=== PATIENT | female | born 1980 | race Caucasian/White ===

== ENCOUNTER 2018-10-12 10:38 | Emergency (ER) | payer BC ==
[2018-10-12 11:36] VITALS: BP 105/71
--- NOTE | 2018-10-12 11:43 | UC ---
Throat Pain/Nasal Shaggy HPI - HPI Summary HPI Summary: Pt presents with c/o sinus congestion, pressure and pain, bilateral eye redness , and bilateral eye yellow discharge. also, c/o chills, and fatigue X 1 week. - History of Current Complaint Chief Complaint: UCGeneralIllness Stated Complaint: SINUS AND EYE COMPLAINTS Time Seen by Provider: 10/12/18 11:37 Hx Obtained From: Patient Hx Last Menstrual Period: 09/11/18 ?: No Onset/Duration: Gradual Onset, Lasting Days, Still Present Severity: Moderate Pain Intensity: 8 Cough: None Associated Signs & Symptoms: Positive: Sinus Discomfort, Nasal Discharge Related History: Seasonal Allergies - Epiglottits Risk Factors Epiglottis Risk Factors: Negative - Allergies/Home Medications Allergies/Adverse Reactions: Allergies Allergy/AdvReac Type Severity Reaction Status Date / Time ethinyl estradiol Allergy Hives Verified 10/12/18 11:33 [From [employer] (28)] [email or web address] Allergy Hives Verified 10/12/18 11:33 [From [employer] (28)] Home Medications: Home Medications Levothyroxine TAB* [Synthroid TAB*] 50 mcg PO DAILY 10/12/18 [History Confirmed 10/12/18] Phenylephrine HCl/Acetaminophn [Sinus Pressure-Pain Caplet] 1 tab PO ONCE PRN [History Confirmed 10/12/18] PMH/Surg Hx/FS Hx/Imm Hx Previously Healthy: Yes - Surgical History Surgical History: Yes Surgery Procedure, Year, and Place: wisdom - Family History Known Family History: Positive: Cardiac Disease - Social History Occupation: Employed Full-time Lives: With Family Alcohol Use: Occasionally Substance Use Type: None Smoking Status (MU): Never Smoked Tobacco Have You Smoked in the Last Year: No - Immunization History Vaccination Up to Date: No Review of Systems All Other Systems Reviewed And Are Negative: Yes Constitutional: Positive: Chills, Fatigue Skin: Positive: Negative Eyes: Positive: Drainage, Eye Redness ENT: Positive: Sinus Congestion, Sinus Pain/Tenderness Respiratory: Positive: Negative Cardiovascular: Positive: Negative Gastrointestinal: Positive: Negative Genitourinary: Positive: Negative Motor: Positive: Negative Neurovascular: Positive: Negative Musculoskeletal: Positive: Negative Neurological: Positive: Negative Psychological: Positive: Negative Is Patient Immunocompromised?: No Physical Exam Triage Information Reviewed: Yes Appearance: Ill-Appearing Vital Signs: Initial Vital Signs Temp 97.8 F 10/12/18 11:30 Pulse 65 10/12/18 11:30 Resp 14 10/12/18 11:30 BP 105/71 10/12/18 11:30 Pulse Ox 100 10/12/18 11:30 Vital Signs Reviewed: Yes Eyes: Positive: Conjunctiva Inflamed, Discharge ENT: Positive: Nasal congestion, Sinus tenderness Dental Exam: Normal Neck exam: Normal Respiratory Exam: Normal Cardiovascular Exam: Normal Musculoskeletal Exam: Normal Neurological Exam: Normal Psychological Exam: Normal Skin Exam: Normal Throat Pain/Nasal Course/Dx - Differential Dx/Diagnosis Differential Diagnosis/HQI/PQRI: Sinusitis, URI Provider Diagnosis: Sinusitis, Conjunctivitis Discharge - Sign-Out/Discharge Documenting (check all that apply): Patient Departure All imaging exams completed and their final reports reviewed: No Studies - Discharge Plan Condition: Stable Disposition: HOME Prescriptions: Amoxicillin PO (*) [Amoxicillin 500 MG CAP*] 500 mg PO Q12H #20 cap Polymyx/Trimethoprim OPTH* [Polytrim OPHTH*] 2 drop BOTH EYES Q6H 7 Days #1 btl Patient Education Materials: Sinusitis (ED), Conjunctivitis (ED) Referrals: Marbella Arreguin MD [Primary Care Provider] - If Needed - Billing Disposition and Condition Condition: STABLE Disposition: Home - Attestation Statements Provider Attestation: Per institutional requirements, I have reviewed the chart, however, I was not consulted specifically or made aware of this patient by the midlevel provider. I did not personally evaluate, interact with , or disposition this patient.
== END 2018-10-12 11:52 | disposition home or self-care (01) ==
LOC: UCCORT 10:38
DX: J32.9 Chronic sinusitis, unspecified (principal); H10.9 Unspecified conjunctivitis; J30.2 Other seasonal allergic rhinitis; Z88.8 Allergy status to other drugs, medicaments and biological substances
CPT/HCPCS: 99202; G0463

== ENCOUNTER 2018-12-19 19:03 | Emergency (ER) | payer BC ==
[2018-12-19 19:32] VITALS: BP 100/63
--- NOTE | 2018-12-19 19:47 | UC ---
Laceration HPI - HPI Summary HPI Summary: pt presents with c/o laceration to right thumb. Pt was cutting cucumbers with sharp knife and cut lateral edge of right thumb. Pt's tetanus is UTD - History Of Current Complaint Chief Complaint: UCLaceration Stated Complaint: LACERATION RIGHT THUMB Time Seen by Provider: 12/19/18 19:33 Hx Obtained From: Patient Hx Last Menstrual Period: 08/2018 Laceration Location: Finger - right thumb Mechanism Of Injury: Sharp Trauma Onset/Duration: Sudden Onset Severity: Moderate Pain Intensity: 7 Aggravating Factors: Position, Movement Related History: Dominant Hand Left - Allergies/Home Medications Allergies/Adverse Reactions: Allergies Allergy/AdvReac Type Severity Reaction Status Date / Time ethinyl estradiol Allergy Hives Verified 10/12/18 11:33 [From [facility] (28)] [email or web address] Allergy Hives Verified 10/12/18 11:33 [From [facility] (28)] PMH/Surg Hx/FS Hx/Imm Hx Previously Healthy: Yes - Surgical History Surgical History: Yes Surgery Procedure, Year, and Place: [place] - Family History Known Family History: Positive: Cardiac Disease - Social History Occupation: Employed Full-time Lives: With Family Alcohol Use: Occasionally Substance Use Type: None Smoking Status (MU): Never Smoked Tobacco Have You Smoked in the Last Year: No - Immunization History Most Recent Tetanus Shot: pt states 1.5 years ago Vaccination Up to Date: No Review of Systems All Other Systems Reviewed And Are Negative: Yes Constitutional: Positive: Negative Skin: Positive: Other - laceration right thumb Eyes: Positive: Negative ENT: Positive: Negative Respiratory: Positive: Negative Cardiovascular: Positive: Negative Gastrointestinal: Positive: Negative Genitourinary: Positive: Negative Motor: Positive: Negative Neurovascular: Positive: Negative Musculoskeletal: Positive: Myalgia - at wound site Neurological: Positive: Negative Psychological: Positive: Negative Is Patient Immunocompromised?: No Physical Exam Triage Information Reviewed: Yes Appearance: Well-Appearing, Other: - pt states she gets "woozy at site of blood " Vital Signs: Initial Vital Signs Temp 97.9 F 12/19/18 19:27 Pulse 77 12/19/18 19:27 Resp 16 12/19/18 19:27 BP 100/63 12/19/18 19:27 Pulse Ox 100 12/19/18 19:27 Vital Signs Reviewed: Yes Eye Exam: Normal ENT: Positive: Hearing grossly normal Dental Exam: Normal Neck exam: Normal Respiratory: Positive: No respiratory distress Musculoskeletal Exam: Normal Musculoskeletal: Positive: Strength Intact, ROM Intact Neurological Exam: Normal Psychological Exam: Normal Skin Exam: Other - laceration right thumb Laceration Repair - Laceration Repair 1 Description: Linear Laceration Size After Repair: Length (cm) - 1.5, Width (mm) - 2, Depth (mm) - 4 Modified For Repair: No Cleansing Completed Via Routine Prep: Yes Irrigation With Pressure Irrigation Device: Yes Closure Material: Skin Adhesive, SteriStrips Closure Method: Single Layer Suture Of: Skin Laceration Course/Dx - Differential Dx - Laceration/Wound Differental Diagnoses: Laceration - Diagnosis Provider Diagnosis: Laceration of right thumb Discharge - Sign-Out/Discharge Documenting (check all that apply): Patient Departure All imaging exams completed and their final reports reviewed: No Studies - Discharge Plan Condition: Stable Disposition: HOME Patient Education Materials: Laceration (DC), Skin Adhesive Care (ED) Referrals: Marbella Arreguin MD [Primary Care Provider] - If Needed Additional Instructions: Please keep your dressing and wound clean and dry. Do not remove or change the dressing for 24-48 hours unless it becomes soiled or wet. Do not apply antibiotic ointment to the wound. Do not pull off the steri strips. Please monitor for signs and symptoms of infection that include but are not limited to : increased redness, increased pain, swelling, red streaking from wound, purulent discharge, fever and/or chills. Please keep your finger splinted for 5 days. - Billing Disposition and Condition Condition: STABLE Disposition: Home - Attestation Statements Provider Attestation: Per institutional requirements, I have reviewed the chart, however, I was not consulted specifically or made aware of this patient by the midlevel provider. I did not personally evaluate, interact with , or disposition this patient.
== END 2018-12-19 20:22 | disposition home or self-care (01) ==
LOC: UCCORT 19:03
DX: S61.011A Laceration without foreign body of right thumb without damage to nail, initial encounter (principal); W26.0XXA Contact with knife, initial encounter; Y93.G1 Activity, food preparation and clean up; Y92.9 Unspecified place or not applicable
CPT/HCPCS: 12001; 99211; G0463